=== PATIENT | female | born 1990 | race Asian ===

== ENCOUNTER → 2024-02-19 | Outpatient (CLI) | payer BC ==
--- NOTE | 2024-02-19 09:57 | HMCIMG ---
UPPER GI TRACT, WO KUB REASON: Epigastric pain; Nausea COMPARISON: None TECHNIQUE: Air contrast upper GI was performed with fluoroscopic observation, fluoroscopy time 0.6 minutes. 9 short cine sequences were performed. FINDINGS: There is normal esophageal peristalsis. Esophagus, stomach and duodenum appear unremarkable. There is no mass, ulcer or obstructing lesion. Mucosal pattern appears normal in the stomach. There is no hiatal hernia. There is no reflux during the exam. IMPRESSION: 1. Normal air contrast upper GI.
== END | disposition home or self-care (01) ==
LOC: RAH 08:41
PROVIDERS: ATTEND Internal Medicine Gastroenterology
DX: R10.13 Epigastric pain (principal); R11.0 Nausea
CPT/HCPCS: 74240